=== PATIENT | male | born 1980 | race Caucasian/White ===

== ENCOUNTER 2016-06-18 23:47 | Emergency (ER) | payer SELFPAY ==
[~2016-06-18 23:47] MED LIST: AMOXICILLIN500 M PO; CLINDAMYCIN HC300 MG PO; FLEXERIL10 MG PO; FLOMAX0.4 MG PO; HYDROCODON-ACE1 EAC7 PO; HYDROCODONE/APA1 CAP PO; KETOPROFEN75 MG PO; LEVAQUIN250 MG PO; MEDROL DOSE-4 MG/TAB PO; NO MEDICATIONS; NORCO 5-325 TA1 EACH PO; NORCO 5/325 TAB1 TAB PO; PEN-VEE K500 MG PO; PERCOCET 10 MG/1 TA1 PO; PERCOCET 5/3251 TAB PO; ULTRAM50 MG PO; WAL-PROFEN200 M1 PO; ZOFRAN ODT4 MG/UDTAB PO
[2016-06-19] MEDS ORDERED: IBUPROFEN600 M1 PO (01:15)
[2016-06-19] MEDS ORDERED: PENICILLIN V P500 M1 PO (01:15)
== END 2016-06-19 01:29 ==
LOC: EDMED 23:47
DX: S43.51XA Sprain of right acromioclavicular joint, initial encounter (principal); K04.7 Periapical abscess without sinus; X58.XXXA Exposure to other specified factors, initial encounter; Y93.23 Activity, snow (alpine) (downhill) skiing, snowboarding, sledding, tobogganing and snow tubing